=== PATIENT | female | born 1940 | race Caucasian/White ===

== ENCOUNTER 2023-01-01 09:55 | Observation (INO) ==
[2023-01-01 11:46] LABS: BASOPHILS % (AUTO) 0.5 % (0.2-1.0); EOSINOPHILS % (AUTO) 0.9 % (0.9-2.9); HEMATOCRIT 31.5 % (36.0-47.0); HEMOGLOBIN 10.6 g/dL (12.0-16.0); LYMPHOCYTES # (AUTO) 0.8 X10^3/uL (1.3-2.9); LYMPHOCYTES % (AUTO) 21.9 % (21.0-51.0); MEAN CORPUSCULAR HEMOGLOBIN 29.2 pg (27.0-34.0); MEAN CORPUSCULAR HGB CONC 33.8 g/dL (33.0-35.0); MEAN CORPUSCULAR VOLUME 86.5 fL (80.0-100.0); MONOCYTES # (AUTO) 1.1 x10^3/uL (0.3-0.8); MONOCYTES % (AUTO) 30.7 % (0.0-13.0); NEUTROPHILS # (AUTO) 1.6 x10^3/uL (2.2-4.8); PLATELET COUNT 102 X10^3/uL (150.0-450.0); RED BLOOD COUNT 3.65 X10^6/uL (3.5-5.4); RED CELL DISTRIBUTION WIDTH 15.8 % (11.6-16.5); WHITE BLOOD COUNT 3.6 X10^3/uL (3.6-10.0)
[2023-01-01 11:52] LABS: ALANINE AMINOTRANSFERASE 19 Units/L (12-78); ALBUMIN 3.8 g/dL (3.4-5.0); ALKALINE PHOSPHATASE 70 Units/L (46-116); ASPARTATE AMINO TRANSFERASE 25 Units/L (15-37); BLOOD UREA NITROGEN 22 mg/dL (7-18); CARBON DIOXIDE 28.4 mmol/L (21-32); CHLORIDE 101 mmol/L (98-107); COR NA(FOR HYPERGLY) 141 mmol/L (136-145); GLUCOSE 130 mg/dL (65-99); POTASSIUM 3.3 mmol/L (3.5-5.1); SODIUM 140 mmol/L (136-145); TOTAL PROTEIN 6.8 g/dL (6.4-8.2); eGFR NON BLACK RACES 27 (>60)
[2023-01-01 12:00] LABS: BAND NEUTROPHILS % 1 % (0-10); METAMYELOCYTES % 1; PLATELET MORPHOLOGY COMMENT NORMAL (NORMAL)
[2023-01-01 12:32] VITALS: BMI 29.9
[2023-01-01] MEDS: PROTONIX INJ 40 MG VIAL IVP SCH ×2 (12:40→20:02)
[2023-01-01] MEDS: NS 1,000 ML IV 1,000 ML IV SCH (12:40)
[2023-01-01] MEDS: PEPCID 20 MG VIAL 20 MG in NS 50 ML IV 50 ML IV SCH ×2 (12:40→20:02)
[2023-01-01 17:56] LABS: BILIRUBIN,URINE NEGATIVE (NEGATIVE); BLOOD/HEMOGLOBIN,URINE 1+ (NEGATIVE); GLUCOSE, URINE NEGATIVE (NEGATIVE); KETONES,URINE 1+ (NEGATIVE); LEUKOCYTE ESTERASE ,URINE 2+ (NEGATIVE); NITRITES,URINE POSITIVE (NEGATIVE); PROTEIN,URINE 1+ (NEGATIVE); UROBILINOGEN,URINE NORMAL (NORMAL)
[2023-01-01 18:06] LABS: APPEARANCE,URINE SLIGHTLY HAZY (CLEAR); COLOR,URINE YELLOW (YELLOW); RBC,URINE 0-2 /HPF (0-3)
[2023-01-01 18:07] LABS: BACTERIA,URINE 4+ /HPF (NEGATIVE); SQUAMOUS EPITHELIAL CELL,UR RARE /HPF (NEGATIVE)
[2023-01-01] MEDS ORDERED: PATIENT'S HOME MEDICATION (Insulin Aspart U-100 [Novolog Flexpen U-100 Insulin] 100 unit/m SCH (20:15)
[2023-01-02] MEDS ORDERED: ZESTRIL TAB 20 MG ONE ×2 (01:13→09:06)
[2023-01-02] MEDS: ANTIVERT TAB 25 MG PO SCH ×3 (01:20→20:23)
[2023-01-02] MEDS: ZESTRIL TAB 20 MG PO SCH ×2 (01:20→09:50)
[2023-01-02] MEDS: ROCEPHIN VIAL 1 GRAM 1 G in NS 100 ML IV 100 ML IV SCH ×2 (01:21→20:25)
[2023-01-02] MEDS: NS 1,000 ML IV 1,000 ML IV SCH (01:21)
[2023-01-02] MEDS ORDERED: NovoLIN R (or HumuLIN R) SUBCUT PRN (04:56)
[2023-01-02 05:42] LABS: BASOPHILS % (AUTO) 0.4 % (0.2-1.0); HEMATOCRIT 28.8 % (36.0-47.0); HEMOGLOBIN 9.9 g/dL (12.0-16.0); LYMPHOCYTES # (AUTO) 0.9 X10^3/uL (1.3-2.9); LYMPHOCYTES % (AUTO) 24.9 % (21.0-51.0); MEAN CORPUSCULAR HEMOGLOBIN 29.5 pg (27.0-34.0); MEAN CORPUSCULAR HGB CONC 34.4 g/dL (33.0-35.0); MEAN CORPUSCULAR VOLUME 85.9 fL (80.0-100.0); MEAN PLATELET VOLUME 9.8 fL (7.4-11.0); MONOCYTES # (AUTO) 0.9 x10^3/uL (0.3-0.8); MONOCYTES % (AUTO) 25.3 % (0.0-13.0); NEUTROPHILS # (AUTO) 1.7 x10^3/uL (2.2-4.8); NEUTROPHILS % (AUTO) 48.4 % (42.0-75.0); PLATELET COUNT 86 X10^3/uL (150.0-450.0); RED BLOOD COUNT 3.36 X10^6/uL (3.5-5.4); RED CELL DISTRIBUTION WIDTH 15.8 % (11.6-16.5); WHITE BLOOD COUNT 3.5 X10^3/uL (3.6-10.0)
[2023-01-02] MEDS: SYNTHROID 50 mcg TAB PO SCH (05:45)
[2023-01-02 05:53] LABS: PLATELET MORPHOLOGY COMMENT NORMAL (NORMAL)
[2023-01-02 05:55] LABS: ALBUMIN 3.2 g/dL (3.4-5.0); CALCIUM 8.3 mg/dL (8.5-10.1); CARBON DIOXIDE 26.7 mmol/L (21-32); COR CA(FOR HYPOALB) 8.9 mg/dL (8.5-10.1); CREATININE 1.74 mg/dL (0.55-1.02); TOTAL PROTEIN 6.2 g/dL (6.4-8.2)
[2023-01-02] MEDS ORDERED: CONSULT PHARMACY - POTASSIUM & MAGNESIUM XX SCH (08:00)
[2023-01-02] MEDS ORDERED: LEVOTHYROXINE 50 MCG PO SCH (09:00)
[2023-01-02] MEDS: PROTONIX INJ 40 MG VIAL IVP SCH ×2 (09:50→20:23)
[2023-01-02] MEDS: PEPCID 20 MG VIAL 20 MG in NS 50 ML IV 50 ML IV SCH (09:50)
[2023-01-02] MEDS: ZYLOPRIM PO SCH (09:51)
[2023-01-02] MEDS: ZOCOR TAB 40 MG PO SCH (09:51)
--- NOTE | 2023-01-02 10:37 | DR.UPDATE ---
H&P Update Prescription drug monitoring program results: PDMP reviewed with concerns identified H&P Reviewed: Yes Any changes to H&P?: Yes Changes noted:: WAS ADMITTED TO THE HOSPITAL OBSERVATIN STATUS FOR FURTHER EVALUATION AND TREATMENT OF GENERALIZED WEAKNESS, ANEMIA, UTI, BLOOD IN URINE, SEVERE LOW BACK PAIN. ON ARRIVAL TO THE HOSPITAL, HER VITALS WERE: 98.0-94-18-93%-170/80. LABS WERE OBTAINED. WBC 3.6, RBC 3.65, HGB 10.6, HCT 31.5, PLT COUNT 102, SODIUM 140, POTASSIUM 3.3, CHLORIDE 101, CARBON DIOXIDE 28.4, BUN 22, CREATININE 1.90, GLUCOSE 130, CALCIUM 9.0, TOTAL BILI 0.60, AST 25, ALT 19, ALK PHOS 70, TOTAL PROTEIN 6.8, ALBUMIN 3.8. URINALYSIS WAS OBTAINED AND REVEALED: WBC 5-10, RBC 0-2, LEUKOCYTES 2+, BACTERIA 4+, NITRITE POSITIVE. A URINE CULTURE WAS SET UP. PRELIMINARY CULTURE HAS GREATER THAN 100,000 COLONY COUNT. SHE WAS STARTED ON NORMAL SALINE WITH 20MEQ KCL AT 80 ML/HR, ROCEPHIN 1G IV DAILY, PEPCID 20MG IV DAILY, OTBS ACHS, HUMULIN R SLIDING SCALE, PROTONIX 40MG IV BID, AND HER HOME MEDICATIONS WERE RESUMED. HOME MEDS INCLUDE: ALLOPURINOL, LEVOTHYROXINE, LISINOPRIL, MECLIZINE, ZOCOR. WHEN HER RENAL FUNCTION IMPROVES, WE PLAN TO OBTAIN AN ABDOMEN/PELVIS CT TO RULE OUT PYELONEPHRITIS. OTHERWISE, WE WILL FOLLOW-UP WITH AM LABS AND CONTINUE TO MONITOR. TIME SPENT ON CLINICAL ASSESSMENT, REVIEWING LABS AND IMAGING, DECISION MAKING, AND DOCUMENTATION WAS GREATER THAN 75 MINUTES. Patient was examined?: Yes
[2023-01-02] MEDS: MICRO K EXTEN CAP 10 MEQ PO SCH ×3 (11:45→13:13)
[2023-01-02] MEDS: NS + KCL 20 MEQ/L 1,000 ML IV SCH ×2 (11:46→23:05)
[2023-01-02] MEDS ORDERED: NS 500 ML IV 500 ML with MAGNESIUM SULFATE 50% INJ VIAL 5 G IV NR ×2 (16:00)
[2023-01-02] MEDS ORDERED: SNACK - Diabetic Appropriate PO SCH (20:00)
[2023-01-02] MEDS ORDERED: NS 100 ML IV 100 ML ONE (20:24)
[2023-01-03] MEDS: SYNTHROID 50 mcg TAB PO SCH (05:34)
[2023-01-03 05:48] LABS: BASOPHILS % (AUTO) 0.4 % (0.2-1.0); HEMATOCRIT 27.8 % (36.0-47.0); HEMOGLOBIN 9.6 g/dL (12.0-16.0); LYMPHOCYTES # (AUTO) 0.9 X10^3/uL (1.3-2.9); LYMPHOCYTES % (AUTO) 25.6 % (21.0-51.0); MEAN CORPUSCULAR HEMOGLOBIN 29.5 pg (27.0-34.0); MEAN CORPUSCULAR HGB CONC 34.6 g/dL (33.0-35.0); MEAN CORPUSCULAR VOLUME 85.4 fL (80.0-100.0); MEAN PLATELET VOLUME 9.8 fL (7.4-11.0); MONOCYTES # (AUTO) 0.9 x10^3/uL (0.3-0.8); MONOCYTES % (AUTO) 25.1 % (0.0-13.0); NEUTROPHILS # (AUTO) 1.8 x10^3/uL (2.2-4.8); NEUTROPHILS % (AUTO) 47.9 % (42.0-75.0); PLATELET COUNT 93 X10^3/uL (150.0-450.0); RED BLOOD COUNT 3.25 X10^6/uL (3.5-5.4); RED CELL DISTRIBUTION WIDTH 15.8 % (11.6-16.5); WHITE BLOOD COUNT 3.7 X10^3/uL (3.6-10.0)
[2023-01-03 05:59] LABS: ALBUMIN 3.3 g/dL (3.4-5.0); CALCIUM 8.2 mg/dL (8.5-10.1); CARBON DIOXIDE 27.6 mmol/L (21-32); COR CA(FOR HYPOALB) 8.8 mg/dL (8.5-10.1); CREATININE 1.47 mg/dL (0.55-1.02); POTASSIUM 3.1 mmol/L (3.5-5.1); TOTAL PROTEIN 6.2 g/dL (6.4-8.2)
[2023-01-03 06:08] LABS: PLATELET MORPHOLOGY COMMENT NORMAL (NORMAL)
[2023-01-03 08:22] VITALS: BP 145/71; PULSE 72; RESP 19; TEMP 98.6; O2SAT 98
[2023-01-03] MEDS ORDERED: KLOR-CON PO SCH (08:45)
[2023-01-03] MEDS ORDERED: ZESTRIL TAB 20 MG ONE (09:41)
[2023-01-03] MEDS: NS + KCL 20 MEQ/L 1,000 ML IV SCH (09:46)
[2023-01-03] MEDS: PEPCID 20 MG VIAL 20 MG in NS 50 ML IV 50 ML IV SCH (09:46)
[2023-01-03] MEDS: PROTONIX INJ 40 MG VIAL IVP SCH (09:47)
[2023-01-03] MEDS: ZESTRIL TAB 20 MG PO SCH (09:47)
[2023-01-03] MEDS: ANTIVERT TAB 25 MG PO SCH (09:47)
[2023-01-03] MEDS: ZYLOPRIM PO SCH (09:48)
[2023-01-03] MEDS: ZOCOR TAB 40 MG PO SCH (09:48)
== END 2023-01-03 12:18 | disposition home or self-care (01) ==
LOC: MED/SURG
PROVIDERS: ADMIT Internal Medicine; ATTEND Internal Medicine
DX: B96.29 Other Escherichia coli [E. coli] as the cause of diseases classified elsewhere; Z79.4 Long term (current) use of insulin; D64.89 Other specified anemias; K62.5 Hemorrhage of anus and rectum; M54.59 Other low back pain; E11.65 Type 2 diabetes mellitus with hyperglycemia; I10 Essential (primary) hypertension; N39.0 Urinary tract infection, site not specified; R31.9 Hematuria, unspecified; R53.1 Weakness